=== PATIENT | female | born 1955 | race Caucasian/White ===

== ENCOUNTER 2017-06-29 17:58 | Emergency (ER) | payer OTHER ==
[2017-06-29] MEDS ORDERED: IBUPROFEN 600 MG TABLET ONE (18:08)
== END 2017-06-29 19:26 | disposition home or self-care (01) ==
LOC: EDH 17:58
DX: S82.55XA Nondisplaced fracture of medial malleolus of left tibia, initial encounter for closed fracture (principal); Z90.710 Acquired absence of both cervix and uterus; Z90.49 Acquired absence of other specified parts of digestive tract; X58.XXXA Exposure to other specified factors, initial encounter; Y93.89 Activity, other specified; Y92.89 Other specified places as the place of occurrence of the external cause; Y99.8 Other external cause status
CPT/HCPCS: 29515; 73610